=== PATIENT | female | born 1995 | race Caucasian/White ===

== ENCOUNTER 2020-04-19 01:16 | Emergency (ER) | payer OTHER, SELFPAY ==
[2020-04-19 01:17] VITALS: BP 138/80; PULSE 90; RESP 16; TEMP 37.1; O2SAT 97; BMI 31.5
--- NOTE | 2020-04-19 02:06 | ED.DCSUM_ITS ---
History of Present Illness Chief Complaint: Wound Narrative: [age]-year-old female presenting with partial avulsion of her fingernail on the right finger. She states this occurred when she reached behind her head and hit it on the headboard of the bed while she is staying in a hotel. This happened about an hour ago. Bleeding is controlled. She has no numbness. Past Medical History - Allergies and Home Meds Allergies/Adverse Reactions: Allergies celecoxib [From Celebrex] Adverse Reaction (Verified 04/19/20 01:22) Diarrhea Primary Care Physician: [facility] Doctor,Out of [NON-STAFF] - Smoking Status: Former smoker Review of Systems General: Denies: Chills, Fever, Sweats Eyes: Denies: Visual changes - bilaterally, Diplopia ENT: Denies: Rhinorrhea, Sore throat Cardiovascular: Denies: Chest pain, Palpitations Respiratory: Denies: Dyspnea, Cough, Dyspnea on exertion Gastrointestinal: Denies: Abdominal pain, Nausea, Vomiting, Diarrhea, Melena, Hematochezia Musculoskeletal: Reports: Extremity Pain - Pain over the right fourth distal phalanx adjacent to avulsed fingernail. Denies: Myalgias, Arthralgias Skin: Reports: Wounds - Partial avulsion of right fourth fingernail Neurological: Denies: Headache, Weakness Psych: Denies: Depression, Anxiety Physical Exam Vital Signs/Narrative: Vital Signs Temp Pulse Resp BP Pulse Ox 04/19/20 01:17 98.7 F 90 16 138/80 H 97 Inital Vital Signs reviewed: Yes General: Well nourished, Well developed, No Acute Distress Head: Normocephalic, Atraumatic Eyes: Perrl, EOMI Extremities: Tenderness - To palpation of the right fourth phalanx on the right hand. There is partial nail avulsion. The nail bed appears to be intact. Neurological: Alert, Oriented x3 Psychological: Normal affect Diagnostic/Tx/Re-eval - Medical Decision Making Patient was seen and evaluated on arrival for partial avulsion of her fingernail. There is no active bleeding. The nailbed is intact. Please see procedure note. She is given wound care instructions. She will follow-up with her PCP to ensure resolution. Procedures Procedure(s): Patient's hand was cleaned with chlorhexidine. A digital nerve block was performed on the right hand at the base of the right fourth digit 6 cc of lidocaine without epinephrine. Good anesthesia is achieved. The rest of her fingernail was removed without causing any damage to the nail bed. There is no bleeding. Patient's wound was dressed with petroleum gauze and a dressing. ED Disposition - Plan for ED Patient: Disposition: Home or Assisted Living Diagnosis: Nail avulsion, finger Instructions: ED AVULSION LACERATION Referrals: [facility] Doctor,Out of [NON-STAFF] -
[2020-04-19 03:35] VITALS: BP 132/60; PULSE 78; RESP 18
== END 2020-04-19 03:35 | disposition home or self-care (01) ==
PROVIDERS: Emergency Provider Student in an Organized Health Care Education/Training Program
DX: S61.304A Unspecified open wound of right ring finger with damage to nail, initial encounter (principal); W22.8XXA Striking against or struck by other objects, initial encounter; Y93.89 Activity, other specified; Y92.59 Other trade areas as the place of occurrence of the external cause; Z87.891 Personal history of nicotine dependence
CPT/HCPCS: 11750; 11760; 99283